=== PATIENT | male | born 1975 | race Hispanic/Latino ===

== ENCOUNTER 2018-02-09 15:22 | Emergency (ER) | payer BC ==
[~2018-02-09] VITALS: Ht 180.3 cm; Wt 72.6 kg
[2018-02-09] MEDS ORDERED: TETANUS/DIPHTHERIA TOX ADULT 0.5 ML SYR IM ONE (15:45)
[2018-02-09 16:13] VITALS: BP 110/82
== END 2018-02-09 16:20 | disposition home or self-care (01) ==
LOC: ER 15:22
CPT/HCPCS: 90471; 90714; 99283

== ENCOUNTER 2022-08-27 12:28 | Emergency (ER) | payer BC, OTHER ==
[~2022-08-27] VITALS: Ht 180.3 cm; Wt 72.6 kg
[2022-08-27] MEDS ORDERED: ACETAMINOPHEN 325 MG TAB PO ONE (13:30)
== END 2022-08-27 15:05 | disposition home or self-care (01) ==
LOC: ER 12:52
DX: R51.9 Headache, unspecified (principal); R05.9 Cough, unspecified; Z20.822 Contact with and (suspected) exposure to COVID-19
CPT/HCPCS: 99283; U0002